=== PATIENT | male | born 1965 | race Caucasian/White ===

== ENCOUNTER 2021-03-23 06:17 | Day surgery (SDC) | payer BC ==
[~2021-03-23] VITALS: Ht 175.3 cm; Wt 82.9 kg
[~2021-03-23 06:17] MED LIST: AMLO10 PO; FAMO20 PO; LISI20 PO; MECL25 PO; ONDA4ODT MM; PRAVASTATIN SOD40 MG PO; ZEBUTAL 50-3251 EAC1
[2021-03-23] MEDS ORDERED: [UNRECOGNIZED DRUG - OTHER] (07:09)
== END 2021-03-23 08:31 | disposition home or self-care (01) ==
LOC: ORSCSDS 06:17
PROVIDERS: Orthopaedic Surgery
PROC: 01N50ZZ Release Median Nerve, Open Approach (ICD-10-PCS; principal; 2021-03-23 07:30)
DX: G56.01 Carpal tunnel syndrome, right upper limb (principal); I10 Essential (primary) hypertension; Z79.899 Other long term (current) drug therapy
CPT/HCPCS: J2250; J2704; J3010

== ENCOUNTER 2021-04-29 09:44 | Day surgery (SDC) | payer BC ==
[~2021-04-29] VITALS: Ht 175.3 cm; Wt 81.4 kg
[~2021-04-29 09:44] MED LIST changes: +[UNRECOGNIZED DRUG - OTHER]
[2021-04-29] MEDS ORDERED: KETO15TC (10:01)
[2021-04-29] MEDS ORDERED: BISA5EC (10:03)
[2021-04-29] MEDS ORDERED: CLOBETASOL 0.0560 GM (10:03)
== END 2021-04-29 12:52 | disposition home or self-care (01) ==
LOC: ORSCSDS 09:44
PROVIDERS: Student in an Organized Health Care Education/Training Program
PROC: 0DB98ZX Excision of Duodenum, Via Natural or Artificial Opening Endoscopic, Diagnostic (ICD-10-PCS; principal; 2021-04-29 11:00)
PROC: 0DBE8ZX Excision of Large Intestine, Via Natural or Artificial Opening Endoscopic, Diagnostic (ICD-10-PCS; principal; 2021-04-29 11:00)
PROC: 0DB48ZX Excision of Esophagogastric Junction, Via Natural or Artificial Opening Endoscopic, Diagnostic (ICD-10-PCS; principal; 2021-04-29 11:00)
DX: K21.9 Gastro-esophageal reflux disease without esophagitis (principal); K29.80 Duodenitis without bleeding; Z12.11 Encounter for screening for malignant neoplasm of colon; K52.9 Noninfective gastroenteritis and colitis, unspecified; I10 Essential (primary) hypertension; Z79.899 Other long term (current) drug therapy
CPT/HCPCS: 88305; 88312; J2250; J2704; J7120